=== PATIENT | female | born 1955 | race Caucasian/White ===

== ENCOUNTER 2016-07-10 05:22 | Day surgery (SDC) | payer OTHER ==
[~2016-07-10 05:22] MED LIST: BYDUREON P2 MG/0.65 SC; EXCEDRIN MIGRA1 EAC3 PO; GLUCOPHAGE1000 MG PO; GLUCOTROL5 MG PO; LUCENTIS SC; PRINIVIL10 MG PO; ZANTAC150 MG PO
[2016-07-10] MEDS ORDERED: ATORVASTATIN CA10 MG PO (06:46)
[2016-07-10 06:50] LABS: POINT-OF-CARE METER ID UU14174212
[2016-07-10 06:58] VITALS: BP 133/62
[2016-07-10 08:59] LABS: POINT-OF-CARE METER ID UU13113675
[2016-07-10 09:15] VITALS: BP 154/80
[2016-07-10 09:53] VITALS: BP 131/66
== END 2016-07-10 10:05 | disposition home or self-care (01) ==
LOC: SDC 05:22
PROVIDERS: Ophthalmology
DX: H35.371 Puckering of macula, right eye (principal); E11.319 Type 2 diabetes mellitus with unspecified diabetic retinopathy without macular edema; Z79.4 Long term (current) use of insulin; I10 Essential (primary) hypertension; Z88.0 Allergy status to penicillin; Z80.52 Family history of malignant neoplasm of bladder; Z80.42 Family history of malignant neoplasm of prostate
CPT/HCPCS: 82948; J0690; J0713; J2795; J3300